=== PATIENT | male | born 1960 | race Caucasian/White ===

== ENCOUNTER 2023-02-04 07:50 | Day surgery (SDC) | payer BC ==
[~2023-02-04] VITALS: Ht 182.9 cm; Wt 93.4 kg
[~2023-02-04 07:50] MED LIST: ATOR1TAB21 PO; LOSA100T46 PO; NS 1,000 ML IV ONE
[2023-02-04] MEDS ORDERED: propofoL 200 MG/20 ML VIAL As Ordered ONE ×2 (08:11→09:20)
[2023-02-04 09:40] VITALS: TEMP 97.7
[2023-02-04 09:55] VITALS: BP 145/96; O2SAT 96
== END 2023-02-04 10:05 | disposition home or self-care (01) ==
LOC: M OPP 07:50
PROVIDERS: ATTEND Internal Medicine Gastroenterology
DX: Z12.11 Encounter for screening for malignant neoplasm of colon (principal); Z80.0 Family history of malignant neoplasm of digestive organs; D12.2 Benign neoplasm of ascending colon; D12.5 Benign neoplasm of sigmoid colon; K57.30 Diverticulosis of large intestine without perforation or abscess without bleeding; K64.8 Other hemorrhoids; Z79.02 Long term (current) use of antithrombotics/antiplatelets; Z79.899 Other long term (current) drug therapy